=== PATIENT | female | born 1990 | race Hispanic/Latino ===

== ENCOUNTER 2018-02-07 02:43 | Emergency (ER) | payer OTHER | END 2018-02-07 04:01 | disposition home or self-care (01) | LOC: EDH 02:43 | DX: Z02.83 Encounter for blood-alcohol and blood-drug test (principal); E78.5 Hyperlipidemia, unspecified; G43.909 Migraine, unspecified, not intractable, without status migrainosus; F41.9 Anxiety disorder, unspecified; Z88.1 Allergy status to other antibiotic agents ==